=== PATIENT | female | born 1950 | race Caucasian/White ===

== ENCOUNTER 2017-07-01 15:37 | Outpatient (CLI) | payer OTHER | END 2017-07-01 19:50 | disposition home or self-care (01) | LOC: SMA 15:37 | PROVIDERS: ATTEND Family Medicine | DX: Z12.31 Encounter for screening mammogram for malignant neoplasm of breast (principal) | CPT/HCPCS: G0202 ==

== ENCOUNTER 2018-08-04 16:09 | Outpatient (CLI) | payer OTHER | END 2018-08-04 19:10 | disposition home or self-care (01) | LOC: SMA 16:09 | PROVIDERS: ATTEND Family Medicine | DX: Z12.31 Encounter for screening mammogram for malignant neoplasm of breast (principal) | CPT/HCPCS: 77067 ==

== ENCOUNTER 2021-03-17 10:38 | Outpatient (CLI) | payer OTHER | END 2021-03-17 14:16 | disposition home or self-care (01) | LOC: SMA 10:38 | PROVIDERS: ATTEND Family Medicine | DX: Z12.31 Encounter for screening mammogram for malignant neoplasm of breast (principal) | CPT/HCPCS: 77067 ==